=== PATIENT | female | born 1960 | race Caucasian/White ===

== ENCOUNTER 2016-09-22 19:55 | Emergency (ER) | payer BC ==
[2016-09-22] MEDS ORDERED: LIDOCAINE 2% VISC 15 ML UDC ONE (22:16)
[2016-09-22] MEDS ORDERED: ALU/MAG/SIM 30 ML UDC ONE (22:16)
== END 2016-09-22 23:36 | disposition home or self-care (01) ==
LOC: ER 19:55
CPT/HCPCS: 71020; 93005